=== PATIENT | male | born 1955 | race Caucasian/White ===

== ENCOUNTER 2017-09-17 16:42 | Emergency (ER) | payer SELFPAY ==
[2017-09-17] MEDS ORDERED: Aspirin 325 MG Tab.EC PO ONE (17:06)
[2017-09-17] MEDS ORDERED: Sodium Chloride 0.9% 10 ML Syringe FLUSH PRN (17:06)
[2017-09-17] MEDS ORDERED: Potassium Chloride 20 MEQ Tab.ER PO ONE (17:56)
--- NOTE | 2017-09-17 18:22 | EDM.PDOC ---
ED HPI GENERAL MEDICAL PROBLEM - General Chief Complaint: Cardiovascular Problem Stated Complaint: RAPID HEARTBEAT/SWEATING Time Seen by Provider: 09/17/17 17:48 Source of Information: Reports: Patient History Limitations: Reports: No Limitations - History of Present Illness INITIAL COMMENTS - FREE TEXT/NARRATIVE: 61-year-old male presents for evaluation and treatment of chest palpitations and diaphoresis. Patient reports he has been diaphoretic in the mornings for the last few days. He states that this morning he woke up he was diaphoretic. He states he became concerned when he felt that his heart was racing. He reports intermittent chest tightness. He denies any shortness of breath, nausea , vomiting, dizziness, syncope, fevers, cough or recent cold symptoms. Patient reports since coming to the ER his symptoms have improved. He does not currently have any events of palpitations. He states he is ever had anything like this before. Patient's reports he does not see a primary care provider and has not seen a doctor in some time. He has been previously diagnosed with sarcoidosis. This was diagnosed with lung biopsy. He is untreated for sarcoidosis. Patient denies any tobacco use. Onset: Today Chest Pain Score (Numeric/FACES): 1 - Related Data Allergies Allergy/AdvReac Type Severity Reaction Status Date / Time No Known Allergies Allergy Verified 09/17/17 16:55 Home Meds: Home Meds . [No Known Home Meds] 09/17/17 [History] Past Medical History - Past Health History Medical/Surgical History: Denies Medical/Surgical History Respiratory History: Reports: Other (See Below) Other Respiratory History: Sarcoidosis - Past Surgical History Respiratory Surgical History: Reports: Lung Biopsies Social & Family History - Tobacco Use Smoking Status *Q: Never Smoker - Recreational Drug Use Recreational Drug Use: Yes Drug Use in Last 12 Months: Yes Recreational Drug Type: Reports: Marijuana/Hashish ED ROS GENERAL - Review of Systems Review Of Systems: See Below Constitutional: Reports: Diaphoresis. Denies: Fever, Chills Respiratory: Denies: Shortness of Breath, Cough Cardiovascular: Reports: Chest Pain (tightness), Palpitations GI/Abdominal: Denies: Abdominal Pain, Nausea, Vomiting Neurological: Denies: Dizziness, Syncope ED EXAM, GENERAL - Physical Exam Exam: See Below Exam Limited By: No Limitations General Appearance: Alert, WD/WN, No Apparent Distress, Thin Eye Exam: Bilateral Eye: Normal Inspection Ears: Normal External Exam, Normal Canal, Hearing Grossly Normal, Normal TMs Nose: Normal Inspection Throat/Mouth: Normal Inspection, Normal Lips, Normal Voice, No Airway Compromise Respiratory/Chest: No Respiratory Distress, Lungs Clear, Normal Breath Sounds Cardiovascular: Normal Peripheral Pulses, Regular Rate, Rhythm, No Murmur Peripheral Pulses: 2+: Radial (L), Radial (R), Posterior Tibial (L), Posterior Tibial (R), Dorsalis Pedis (L), Dorsalis Pedis (R) GI/Abdominal: Soft, Non-Tender Neurological: Alert, Oriented, Normal Cognition Psychiatric: Normal Affect, Normal Mood Skin Exam: Warm, Dry, Normal Color EKG INTERPRETATION EKG Date: 09/17/17 Time: 16:55 Rhythm: NSR Rate (Beats/Min): 91 [place]: Normal P-Wave: Present QRS: Normal ST-T: Normal QT: Normal EKG Interpretation Comments: NSR at 91 bpm. one PAC with compenatory pause. No ischemic changes. No LAD. No LVH. Reviewed by myself and Dr. Moran. Course - Vital Signs Last Recorded V/S: Last Vital Signs Temp 36.3 C 09/17/17 16:48 Pulse 89 09/17/17 16:48 Resp 17 09/17/17 16:48 BP 171/102 H 09/17/17 16:48 Pulse Ox 100 09/17/17 16:48 - Orders/Labs/Meds Labs: Laboratory Tests 09/17/17 09/17/17 09/17/17 Range/Units 16:55 16:55 16:55 WBC 8.17 (4.23-9.07) K/mm3 RBC 4.67 (4.63-6.08) M/mm3 Hgb 14.7 (13.7-17.5) gm/L Hct 43.2 (40.1-51.0) % MCV 92.5 H (79.0-92.2) fl MCH 31.5 (25.7-32.2) pg MCHC 34.0 (32.2-35.5) g/dl RDW Std Deviation 42.4 (35.1-43.9) fL Plt Count 314 (163-337) K/mm3 MPV 9.8 (9.4-12.3) fl Neut % (Auto) 65.2 (34.0-67.9) % Lymph % (Auto) 21.7 L (21.8-53.1) % [place] % (Auto) 10.2 (5.3-12.2) % Eos % (Auto) 2.4 (0.8-7.0) Baso % (Auto) 0.4 (0.1-1.2) % Neut # (Auto) 5.33 (1.78-5.38) K/mm3 Lymph # (Auto) 1.77 (1.32-3.57) K/mm3 [place] # (Auto) 0.83 H (0.30-0.82) K/mm3 Eos # (Auto) 0.20 (0.04-0.54) K/mm3 Baso # (Auto) 0.03 (0.01-0.08) K/mm3 D-Dimer, Quantitative < 0.19 L (0.19-0.59) mg/L Sodium 142 (136-145) mEq/L Potassium 3.1 L (3.5-5.1) mEq/L Chloride 104 (98-107) mEq/L Carbon Dioxide 25 (21-32) mEq/L Anion Gap 16.1 H (5-15) BUN 10 (7-18) mg/dL Creatinine 1.0 (0.7-1.3) mg/dL Est Cr Clr Drug Dosing 73.08 mL/min Estimated GFR (MDRD) > 60 (>60) mL/min BUN/Creatinine Ratio 10.0 L (14-18) Glucose 109 H (74-106) mg/dL Calcium 9.2 (8.5-10.1) mg/dL Total Bilirubin 0.9 (0.2-1.0) mg/dL AST 34 (15-37) U/L ALT 36 (16-63) U/L Alkaline Phosphatase 62 (46-116) U/L CK-MB (CK-2) 2.7 (0-3.6) ng/ml Troponin I < 0.017 (0.00-0.056) ng/mL Total Protein 7.8 (6.4-8.2) g/dl Albumin 4.3 (3.4-5.0) g/dl Globulin 3.5 gm/dL Albumin/Globulin Ratio 1.2 (1-2) TSH 3rd Generation 2.549 (0.358-3.74) uIU/mL 09/17/17 Range/Units 19:45 WBC (4.23-9.07) K/mm3 RBC (4.63-6.08) M/mm3 Hgb (13.7-17.5) gm/L Hct (40.1-51.0) % MCV (79.0-92.2) fl MCH (25.7-32.2) pg MCHC (32.2-35.5) g/dl RDW Std Deviation (35.1-43.9) fL Plt Count (163-337) K/mm3 MPV (9.4-12.3) fl Neut % (Auto) (34.0-67.9) % Lymph % (Auto) (21.8-53.1) % [place] % (Auto) (5.3-12.2) % Eos % (Auto) (0.8-7.0) Baso % (Auto) (0.1-1.2) % Neut # (Auto) (1.78-5.38) K/mm3 Lymph # (Auto) (1.32-3.57) K/mm3 [place] # (Auto) (0.30-0.82) K/mm3 Eos # (Auto) (0.04-0.54) K/mm3 Baso # (Auto) (0.01-0.08) K/mm3 D-Dimer, Quantitative (0.19-0.59) mg/L Sodium (136-145) mEq/L Potassium (3.5-5.1) mEq/L Chloride (98-107) mEq/L Carbon Dioxide (21-32) mEq/L Anion Gap (5-15) BUN (7-18) mg/dL Creatinine (0.7-1.3) mg/dL Est Cr Clr Drug Dosing mL/min Estimated GFR (MDRD) (>60) mL/min BUN/Creatinine Ratio (14-18) Glucose (74-106) mg/dL Calcium (8.5-10.1) mg/dL Total Bilirubin (0.2-1.0) mg/dL AST (15-37) U/L ALT (16-63) U/L Alkaline Phosphatase (46-116) U/L CK-MB (CK-2) (0-3.6) ng/ml Troponin I < 0.017 (0.00-0.056) ng/mL Total Protein (6.4-8.2) g/dl Albumin (3.4-5.0) g/dl Globulin gm/dL Albumin/Globulin Ratio (1-2) TSH 3rd Generation (0.358-3.74) uIU/mL Meds: Medications Discontinued Medications Generic Name Dose Route Start Last Admin Trade Name Joe PRN Reason Stop Dose Admin Aspirin 325 mg 09/17/17 17:06 09/17/17 17:11 Ecotrin PO 09/17/17 17:07 325 mg ONETIME ONE Administration Potassium Chloride 20 meq 09/17/17 17:56 09/17/17 18:07 Klor-Con M20 PO 09/17/17 17:57 20 meq ONETIME ONE Administration Sodium Chloride 10 ml 09/17/17 17:06 09/17/17 17:11 Saline Flush FLUSH 10 ml ASDIRECTED PRN Administration Keep Vein Open - Radiology Interpretation Free Text/Narrative:: Chest: 2 views of the chest were obtained. Comparison: Prior chest x-ray of 03/12/13. Heart size and mediastinum are normal. Lungs are clear with no acute pulmonary densities. Bony structures appear within normal limits. Impression: 1. Nothing acute is seen on 2 view chest x-ray. - Re-Assessments/Exams Free Text/Narrative Re-Assessment/Exam: 09/17/17 18:41 I reviewed the labs , ekg and chest x-ray results with the patient. He has not had any episodes since coming to the ER. He is resting comfortably. Plan will be to repeat the trop and if remains normal, will discharge home. 09/17/17 20:26 Repeat troponin is negative at less than 0.017. Blood pressures come down nicely. Most recent blood pressure was 148/88. We'll discharge home at this time. Discharge insertions as documented. Departure - Departure Time of Disposition: 20:26 Disposition: Home, Self-Care 01 Condition: Fair Clinical Impression: Hypertension, Hypokalemia Instructions: Hypertension, [id number] Referrals: PCP,None [Primary Care Provider] - Emir Alvarado MD [Physician] - Forms: ED Department Discharge Additional Instructions: Recommend you monitor your blood pressure 2 or 3 times a week. Record this and bring it to your follow-up appointment with internal medicine. Recommend increasing your dietary intake of potassium. High potassium include foods such as bananas, nuts, avacados and potatoes. Follow-up with internal medicine in 1-[address] Alvarado at the [facility]. Call [phone] to schedule with him. Please return to ER if your symptoms change or worsen.
--- NOTE | 2017-09-18 07:17 | CR ---
Chest: Two views of the chest were obtained. Comparison: Prior chest x-ray of 03/12/13. Heart size and mediastinum are normal. Lungs are clear with no acute pulmonary densities. Bony structures appear within normal limits. Impression: 1. Nothing acute is seen on two-view chest x-ray. Diagnostic code #1
== END 2017-09-17 20:40 | disposition home or self-care (01) ==
LOC: JD.ED 16:42
DX: I10 Essential (primary) hypertension (principal); E87.6 Hypokalemia
CPT/HCPCS: 36415; 71046; 80053; 82553; 84443; 84484; 85025; 85379; 93005; 99285; A9270; J7050; 93010; 99283-25